=== PATIENT | male | born 2005 | race Caucasian/White ===

== ENCOUNTER 2025-05-15 16:09 | Outpatient (AMB) | payer OTHER, SELFPAY ==
--- NOTE | 2025-05-15 16:04 | MHC.OFFVIS ---
Intake Visit Reasons: 1 year follow up Allergies flu vaccine Allergy (Unknown, Uncoded 12/15/24 09:48) Unknown Medication List - Last Reconciled 05/15/25 by Shivani Licona MD amitriptyline 75 mg PO BEDTIME 90 days lcguwhjram-glssthltscxhn-okmi 50-325-40 mg 2 tabs PO Q8H PRN 30 days HPI Comments Details: Migraines were better but again increased to 2-3 / wk weather dependent. If he treats it early, he can get rid of it in 2 hrs. Working at [employer]. Using 1-2 Fioricet works 80% of the time.. Migraine with aura lasting 1-4 hrs with nausea and photo and phonophobia. 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 Had second injection of Botox for his salivary gland and makes a difference in eating. 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 Weather and light strigger it. Uses Fioricet in 1-2 hrs mostly. Triggered by weather, by fluorescent lights and computer screensand smells like bleach and starts with tension and tightening in neck. Can also be triggered by running. Excedrin helps and occasional Fioricet. Occasional vomiting and needing to go to bed. Gets dizzy with it and has some photophobia. ?Since childhood he has a lot of stress headaches, averaging 1 every 7-10 days mostly in school relieved by Tylenol. He also gets migraine with nausea photophobia and sonophobia that did not respond to Tylenol. He has no attention problems. He has no social problems. He likes to work in the yard gardening and [employer] in mowing the [employer] He has some friends in school. There are no bullying issues. Occasionally has trouble getting to sleep and takes a melatonin. His had some asthma problems for which he takes Pro-air inhaler. [facility] Medical History (Updated 05/15/25 @ 16:07 by Shivani Licona MD) GERD (gastroesophageal reflux disease) Insomnia Migraine Headache Review of Systems Const Details: Sleep:? Difficulty getting to sleep?admits.? Difficulty maintaining sleep?denies?.? Urge to move legs?denies.? Teeth grinding?denies.? Shouting or Kicking during sleep?denies.? Abnormal behavior during sleep?denies.? Excessive sleep?denies.? Snoring?denies.? Daytime sleepiness?denies.? ?? General/Constitutional:? Change in appetite?denies.? Chills?denies.? Fatigue?denies.? Fever?denies.? Weight gain?denies.? Weight loss?denies.? ?? Ophthalmologic:? Blurred vision?denies.? Diminished visual acuity?denies.? ?? ENT:? Stuffiness?denies.? Decreased hearing?denies.? Dry mouth?denies.? Ear pain?denies.? Nosebleed?denies.? Ringing in the ears?denies.? Sinus pain?denies.? Sore throat?denies.? Swollen glands?denies.? ?? Endocrine:? Cold intolerance?denies.? Excessive thirst?denies.? Frequent urination?denies.? Heat intolerance?denies.? ?? Respiratory:? Shortness of breath?denies.? Chest pain?denies.? Cough?denies.? ?? Breast:? Breast lump?denies.? Nipple discharge?denies.? ?? Cardiovascular:? Chest pain at rest?denies.? Chest pain with exertion?denies.? Claudication?denies.? Dizziness?denies.? Fluid accumulation in the legs?denies.? Irregular heartbeat?denies.? Palpitations?denies.? ?? Gastrointestinal:? Abdominal pain?denies.? Constipation?denies.? Diarrhea?denies.? Difficulty swallowing?denies.? Heartburn?denies.? Nausea?denies.? Rectal bleeding?denies.? ?? Hematology:? Easy bruising?denies.? Prolonged bleeding?denies.? ?? Genitourinary:? Frequent urination?denies.? Urgency?denies.? Incontinence?denies.? Erectile Dysfunction?denies.? ?? Musculoskeletal:? Neck pain?denies.? Back pain?denies.? Muscle aches?denies.? Painful joints?denies.? Sciatica?denies.? Weakness?denies.? ?? Podiatric:? Difficulty walking?denies.? Foot numbness?denies.? ?? Neurologic:? Difficulty swallowing?denies.? Balance difficulty?denies.? Coordination?normal.? Difficulty speaking?denies.? Dizziness?denies.? Fainting?denies.? Gait abnormality?denies.? Headache?admits.? Loss of strength?denies.? Loss of use of extremity?denies.? Low back pain?denies.? Memory loss?denies.? Seizures?denies.? Tics?denies.? Tingling/Numbness?denies.? Transient loss of vision?denies.? Tremor?denies.? ?? Psychiatric:? Anxiety?admits.? Auditory/visual hallucinations?denies.? Delusions?denies.? Depressed mood?denies.? Stressors?admits.? Substance abuse?denies.? Suicidal thoughts?denies.? ?? Physical Exam Neuro Other: Neurological: ? Abnormal neurological findings:??none.? Mental Status:?alert and oriented X 3,?Normal attention, orientation, memory and affect.? Cranial Nerves:?Pupils are equal, round and reactive to light. Fundoscopy shows normal disc bilaterally. External occular muscles are intact. Visual griffith are full, no ptosis. Face is symmetrical, no facial weakness or droop. Facial sensations are normal. Tongue protrudes in midline. Palate elevates symmetrically. Shoulder shrugging is normal..? Motor Examination:?Normal muscle tone, bulk and strength,?No atrophy or fasciculations,?No drift of the extended upper extremities,?Deep tendon reflexes are 2+?,?Plantars are flexor?.? Straight Leg Raising:?90 degrees.? Sensory Exam:?Normal light touch, temperature, pinprick, vibration and joint-position sensations?,?Rhomberg sign is absent.? Coordination:?no ataxia,?no titubation,?umdpnr-xo-nmjp, qcgk-yjol-gkrz test and rapid alternating movements were normal.? Gait Exam:?Within normal limits.? Cerebellar Signs:?Fhxnhp-kg-hltl and nasf-eh-vfef is normal,?no dysdiadochokinesia?.? Extrapyramidal System:?No tremor, rigidity with normal facial expressions,?No bradykinesia, no bradyphrenia. Normal arm swing and posture. No propulsion or retropulsion.? Speech:?Normal,?no dysphasia or dysarthria..? Mini Mental Status Exam: ? Level of Consciousness:?Alert.? Orientation:?Knows correct year, month, date, day and season,?Knows correct city, county and state. Knows correct location and floor.? Registration:?Able to register 3 objects.? Attention:?Serial 7's performed accurately.? Recall:?Able to recall 3 out of 3 objects.? Language:?Normal spontaneous speech, fluency, repetition,naming, comprehension, reading and writing.? Total Score:?30/30.? Assessment & Plan Assessment & Plan (1) Migraine: Code(s): G43.909 - Migraine, unspecified, not intractable, without status migrainosus Category: Medical Plan Refill Amitriptyline HCl Tablet, 75 MG, 1 tablet, Orally, Once a day, 30 days, 30 Tablet, Refills 5 Refill Dnrnsfbrjr-ZOND-Wxujmwwp Tablet, 50-325-40 MG, 2tabs, Orally, every 8 hrs prn, 30 days, 40, Refills 1 Notes: Taking 4-6 Fioricet a week.?? Medications: Refilled amitriptyline 75 mg PO BEDTIME 90 tabs 3RF 90 days avsacnsumq-zwvpfpbgcwsmr-fcqn 50-325-40 mg 2 tabs PO Q8H PRN 40 tabs 2RF headache 30 days Coding Level of Care Code Est Pt Level 4 (44065) Diagnoses Migraine G43.909
--- OUTSIDE RECORDS SUMMARY | 2025-05-15 20:08 | XMS_ITS | Data Portability ---
Author Organization [place] - [facility], Allergy Address [address] [place] [id number] Care Team Providers Care Firer Bisque Kiln Name Role Phone NATALIE PORRAS Primary Care Provider [phone] Assessment Encounter Date Assessment Date Assessment LastModified by Organization Details LastModified Time 01/09/2025 01/09/2025 19-year-old male presents for evaluation of tonsillitis that started 6 days with concerns for a peritonsillar abscess. Strep testing from medical transcriber office revealed non-strep-A infection, but mono was not tested. Physical exam today reveals a muffled voice, mild trismus, posterior cervical lymphadenopathy, 3+ tonsilar enlargement (right slightly greater than left) with purulent exudate, no uvular deviation, and symmetrical rise of the uvula and soft palate. Since the soft palate rises symmetrically and there is no uvular deviation, I do not suspect that there is a peritonsillar abscess. The posterior cervical lymphadenopathy does raise my suspicion of a mono infection, but since his strep test returned positive, will treat for bacterial tonsillitis. Will discontinue the Augmentin he is currently on and switch to clindamycin 4 times daily for 10 days. Additionally, due to the significant tonsillar hypertrophy and dysphagia, will start him on a 5-day course of PO prednisone. Patient will follow up in 1 week for re-evaluation. He will call the office if his symptoms worsen in the interim. Assisted in documentation by ESTRELLA Ramirez Not available 01/09/2025 15:38:06 Plan of Treatment Reminders Order Date Submit Date Provider Last Modified By Organization Details Last Modified Time Details Appointments None recorded. Lab None recorded. Referral None recorded. Procedures None recorded. Surgeries None recorded. Imaging None recorded. Medication Orders clindamycin HCl 300 mg capsule 2024 025 [facility] #[id number], [address] [place], [address], 5 05:02:07 prednisone 20 mg tablet 2024 025 [facility] #[id number], [address] [place], [address], 5 05:01:47 Patient TargetsNo targets recorded. Patient InstructionsNo instructions recorded. Reason for Referral None Reported. 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 Medical Equipment None Reported. Allergies Allergen ID Allergen Name Allergen Category Reaction Reaction Severity Criticality Documentation Date Start Date Code Code System Note Provider Name and Address Organization Details Recorded Time 379978 Vaccine product containin g only influenza virus antigen (medicina l product) medicatio n other Not available Not available 10/12/2023 90011 84112 105 SNOMED React ion: unkno wn, unspe cifie d;; Not Available [facility] 4 01:11:08 Medications Name Sig Start Date Stop Date Status Note LastModified by Organization Details LastModified Time prednison e 10 mg tablet PLEASE SEE ATTACHED FOR DETAILED DIRECTIO NS active Not Available Not Available No t Available clindamyc in HCl 300 mg capsule Take 1 capsule every 6 hours by oral route for 10 days. 01/26 completed Not Available Not Available Not Available amitripty line 75 mg tablet TAKE 1 TABLET BY MOUTH EVERYDAY AT BEDTIME active Not Available Not Available No t Available prednison e 20 mg tablet Take 2 tablets every day by oral route for 5 days. 01/21 completed Not Available Not Available Not Available penicilli n V potassium 500 mg tablet TAKE 1 TABLET BY MOUTH TWICE A DAY FOR 10 DAYS active Not Available Not Available No t Available triamcino lone acetonide 0.1 % topical cream TAKE 1 APPLICAT ION (TOPICAL ) 2 TIMES PER DAY (ITCHING ) FOR 14 DAYS DO NOT USE ON GROIN OR FACE. active Not Available Not Available No t Available butalbita l-acetami nophen-ca ffeine 50 mg-325 mg-40 mg tablet TAKE 2 TABLETS BY MOUTH EVERY 8 HOURS NEEDED FOR 30 DAYS active Not Available Not Available No t Available amitripty line 25 mg tablet active Medicati on ID: [id number] Nathalie muñiz Name: amitript yline Se nd Method: E-Prescr ibed Sub s Allowed: subs OK Speci al Instruct ion: TAKE 1 TABLET BY MOUTH AT BEDTIME FOR 2 WEEKS THEN TAKE 2 TABS AT BEDTIME THEREAFT ER DIRECTED Medicat ionGener icName: amitript yline Not Available Not Available Not Available nortripty line 10 mg capsule Take 1 capsule by mouth once a day as directed 08/31 completed Medicati on ID: [id number] Romelia daly By Name: Bernardo M. Schreibs tein, M.D. Bra nd Name: nortript yline Se nd Method: E-Prescr ibed Sub s Allowed: subs OK Specpetey al Instruct ion: At bedtime Medicati onGeneri cName: nortript yline Not Available Not Available Not Available hydroxyzi ne HCl 25 mg tablet TAKE 1 TABLET 3 TO 4 TIMES PER DAY ITCHING FOR 5 DAYS MAY CAUSE DROWSINE SS. active Not Available Not Available No t Available ondansetr on 4 mg disintegr ating tablet TAKE 1 TABLET BY MOUTH EVERY 8 HOURS NEEDED FOR NAUSEA active Not Available Not Available No t Available doxycycli ne hyclate 100 mg tablet TAKE 1 TABLET BY MOUTH TWICE A DAY FOR 7 DAYS active Not Available Not Available No t Available amoxicill in 875 mg-potass ium clavulana te 125 mg tablet TAKE 1 TABLET BY MOUTH TWICE A DAY FOR 10 DAYS active Not Available Not Available No t Available Ventolin HFA 90 mcg/actua tion aerosol inhaler INHALE 2 -4 PUFFS BY MOUTH EVERY 4 HOURS NEEDED FOR COUGH, WHEEZE, SHORTNES S OF BREATH active Not Available Not Available No t Available Mapap Arthritis Pain 650 mg tablet,ex tended release 2019 active Medicati on ID: [id number] D uration Value: 4 Brand Name: Mapap Arthriti s Pain Sen d Method: E-Prescr ibed Sub s Allowed: subs OK Speci al Instruct ion: TAKE 2 TABLETS EVERY 8 HOURS,X8 DAYS, NEEDED FOR PAIN,INS TR NOT TO EXCEED 6 TABLETS/ DAY Medi cationGe nericNam e: Mapap Arthriti s Pain Med ication ID: [id number] D uration Value: 4 Brand Name: Mapap Arthriti s Pain Sen d Method: E-Prescr ibed Sub s Allowed: subs OK Speci al Instruct ion: TAKE 2 TABLETS EVERY 8 HOURS,X8 DAYS, NEEDED FOR PAIN,INS TR NOT TO EXCEED 6 TABLETS/ DAY Medi cationGe nericNam e: Mapap Arthriti s Pain Not Available Not Available Not Available escitalop valentino 20 mg tablet TAKE 1 TABLET BY MOUTH EVERY DAY active Not Available Not Available No t Available chlorhexi dine gluconate 0.12 % mouthwash CAP FULL AFTER MEALS 2 TIMES A DAY DONT EAT, SWALLOW DONT RINSE WITH WATER IMMEDIAT SALLY AFTER USE active Not Available Not Available No t Available Mapap Arthritis Pain 08/31 completed Medicati on ID: [id number] D uration Value: 4 Brand Name: Alie thibodeaux Pain Sen d Method: E-Prescr ibed Sub s Allowed: subs OK Speci al Instruct ion: TAKE 2 TABLETS EVERY 8 HOURS,X8 DAYS, NEEDED FOR PAIN,INS TR NOT TO EXCEED 6 TABLETS/ DAY Medi cationGe nericNam e: Mapap Arthriti s Pain Not Available Not Available Not Available Vitals Date Recorded Body weight Body mass index (BMI) Body height Provider Name and Address Organization Details Last Updated DateTime 01/09/2025 54348.51 g 25 kg/m2 187.96 cm Sobeida Dwyer [place] - [facility] 01/09/2025 14:46:35 Social History None recorded. Functional Status None recorded. Mental Status None recorded. Family History Nothing Reported. Medical History No medical history recorded. Past Encounters Encounter ID Performer Location Encounter Start Date Encounter Closed Date Diagnosis/Indication Diagnosis SNOMED-CT Code Diagnosis ICD10 Code Diagnosis IMO Codes Diagnosis Note [id number] RODRIGUEZ KENNY PA-C [facility] [address] [address] 01/09/2025 14:22:24 01/09/2025 15:02:10 Tonsillitis 09240793 J03.90 [id number] Health Concerns Section Related Observation LastModified by Organization Detai ls LastModified Time None Recorded Concern Status LastModified by Organization Details LastModified Time None Recorded Advance Directives Directive None Recorded Payers Insurance Date Sequence Insurance Name Policy Number Policy Harrell Covered Member ID Harrell Member ID Guarantor Name 01/09/2025 1 [place] [facility] Paolo Don [id number] Elena Don 01/16/2025 1 [employer] [place] [id number] Paolo Don [id number] Elena Don Notes Date Note Type Note Provider Name and Address Organization Details Recorded Time 01/09/2025 text/html ROS as noted in the HPI 19-year-old male presents for evaluation of a sore throat. Patient states he developed a sore throat 6 days ago that worsened in severity, along with swelling of his tonsils, difficulty opening his mouth entirely, muffled voice, and pain with swallowing. He saw his medical transcriber 4 days ago, who tested for strep and started him on PO penicillin. Patient states the strep test came back as non-group-A strep over the weekend, therefore he was switched to Augmentin 2 days ago. Patient has noticed some improvement in his throat pain since starting the antibiotics, but he continues to have worsening swelling of his tonsils and difficulty eating. 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 He has a history of mono infection in 2021. He denies fevers and difficulty moving his neck. RODRIGUEZ KENNY PA-C [address] [place] [address], [place], [phone], [facility] - [facility] 01/09/2025 15:39:36
--- OUTSIDE RECORDS SUMMARY | 2025-05-15 20:08 | XMS_ITS ---
Author Name [facility] Organization Unknown History of Medication Use Medication Directions Dispensed Refills Start Date End Date Stat Ventolin HFA 90 mcg/actuation aerosol inhaler INHALE 2 -4 PUFFS BY MOUTH EVERY 4 HOURS NEEDED FOR COUGH, WHEEZE, SHORTNESS OF BREATH 06/07/2024 active escitalopram 20 mg tablet TAKE 1 TABLET BY MOUTH EVERY DAY 06/06/2024 active omeprazole 20 mg capsule,delayed release TAKE ONE CAPSULE EVERY DAY 12/20/2017 8 completed amoxicillin 400 mg/5 mL oral suspension Take 2.5 tsp every day by oral route for 10 days. 05/24/2010 1 completed Orapred 15 mg/5 mL (3 mg/mL) oral solution take 2 tsp PO Day 1-3, 1 tsp PO Day 4-6, 1/2 tsp PO Day 7-8 01/06/2010 active Flovent HFA 110 mcg/actuation aerosol inhaler INHALE 2 PUFFS BY MOUTH EVERY DAY RINSE MOUTH AFTER USE 08/20/2009 active Westcort 0.2 % topical cream Apply to affected area(s) by topical route 2 times per day 04/29/2009 active butalbital-acetaminop hen-caffeine 50 mg-325 mg-40 mg tablet TAKE 2 TABLETS BY MOUTH EVERY 8 HOURS NEEDED FOR 30 DAYS 5 completed chlorhexidine gluconate 0.12 % mouthwash CAP FULL AFTER MEALS 2 TIMES A DAY DONT EAT, SWALLOW DONT RINSE WITH WATER IMMEDIATELY AFTER USE 5 completed doxycycline hyclate 100 mg tablet TAKE 1 TABLET BY MOUTH TWICE A DAY FOR 7 DAYS 5 completed prednisone 10 mg tablet PLEASE SEE ATTACHED FOR DETAILED DIRECTIONS 5 completed amoxicillin 500 mg capsule TAKE 2 CAPSULES BY MOUTH EVERY DAY FOR 10 DAYS 3 completed diazepam 5 mg tablet TAKE 1 TABLET BY MOUTH 1 HOUR BEFORE APPT 3 completed lorazepam 1 mg tablet TAKE 1 TABLET BY MOUTH 90 MINUTES BEFORE APPT 3 completed cephalexin 250 mg capsule TAKE 1 CAPSULE BY MOUTH 4 TIMES A DAY UNTIL FINISHED 3 completed cetirizine 10 mg tablet TAKE 1 TABLET BY MOUTH EVERY DAY 3 completed doxycycline hyclate 100 mg capsule TAKE 1 CAPSULE BY MOUTH TWICE A DAY FOR 1 DAY 3 completed triamcinolone acetonide 0.1 % topical cream APPLY TO PRURITIC LESIONS TWICE DAILY NEEDED FLARES, DECREASE SYMPTOMS IMPROVE 3 completed sodium fluoride 1.1 % dental paste BRUSH TWICE A DAY WITH PEA SIZED AMOUNT THEN FLOSS. SPIT OUT EXCESS AND DO NOT RINSE 2 completed cephalexin 500 mg capsule TAKE 2 CAPSULES TWICE A DAY BY ORAL ROUTE FOR 10 DAYS. 2 completed fluocinonide 0.05 % topical cream APPLY TO AFFECTED AREA TWICE A DAY 2 completed mupirocin 2 % topical ointment APPLY A SMALL AMOUNT TO THE AFFECTED AREA BY TOPICAL ROUTE 3 TIMES PER DAY X 7 DAYS 2 completed docusate sodium 100 mg capsule TAKE 1 CAPSULE BY MOUTH 2 TIMES A DAY NEEDED FOR CONSTIPATION 2 completed doxazosin 2 mg tablet 1 TABLET BY MOUTH DAILY AT BEDTIME,X14 DAYS,START TAKING ON 07/16/21. DOSE TO BE TITRATED UP BY . 2 completed oxycodone 5 mg tablet TAKE 1 TABLET BY MOUTH EVERY 6 HOURS FOR 3 DAYS NEEDED SEVERE PAIN 2 completed escitalopram 10 mg tablet TAKE 1 TABLET EVERY DAY BY ORAL ROUTE FOR 30 DAYS. 1 completed propranolol ER 120 mg capsule,24 hr,extended release TAKE 1 CAPSULE BY MOUTH TWICE A DAY 1 completed Banophen 25 mg capsule TAKE 1 CAPSULE BY MOUTH 3 TIMES A DAY NEEDED FOR ITCHING 0 completed hydrocortisone 1 % topical cream APPLY TO AFFECTED AREA TWICE A DAY 0 completed Mapap Arthritis Pain 650 mg tablet,extended release TAKE 2 TABLETS EVERY 8 HOURS,X8 DAYS, NEEDED FOR PAIN,INSTR NOT TO EXCEED 6 TABLETS/DAY 0 completed methocarbamol 750 mg tablet 2 TABLET BY MOUTH 3 TIMES A DAY,X7 DAYS,INSTR MAX 8 GM/DAY. DECREASE AFTER 72 HOURS TO 4 GM/DAY 0 completed nortriptyline 10 mg capsule TAKE 1 CAPSULE BY MOUTH ONCE A DAY DIRECTED AT BEDTIME 0 completed topiramate 100 mg tablet TAKE 1 TABLET AT BEDTIME FOR 2 WEEKS THEN INCREASE TO 1 TABLET TWICE A DAY DIRECTED 9 completed acetaminophen 325 mg tablet TAKE 2 TABLETS BY MOUTH EVERY 6 HOURS NEEDED FOR MODERATE PAIN 8 completed amlodipine 5 mg tablet TAKE 1 TABLET BY MOUTH DAILY EVERY MORNING 8 completed ibuprofen 800 mg tablet TAKE 1 TABLET BY MOUTH EVERY 8 HOURS NEEDED FOR MODERATE PAIN 8 completed meloxicam 15 mg tablet TAKE 1 TABLET BY MOUTH EVERY DAY 8 completed phenoxybenzamine 10 mg capsule 1 CAPSULE BY MOUTH 3 TIMES A DAY 8 completed propranolol 10 mg tablet TAKE 3 TABLETS BY MOUTH EVERY 8 HOURS DIRECTED 8 completed Senna Plus 8.6 mg-50 mg tablet TAKE 1 TABLET BY MOUTH EVERY DAY 8 completed sumatriptan 50 mg tablet TAKE 1 TABLET BY MOUTH EVERY 4 HOURS UP TO 3 TABS DAILY 8 completed topiramate 50 mg tablet TAKE 1 TABLET BY MOUTH TWICE A DAY 8 completed tramadol 50 mg tablet TAKE 1 TABLET BY MOUTH EVERY 6 HOURS NEEDED 8 completed multivitamin 01 8 completed topiramate 25 mg tablet TAKE 1 TABLET BY MOUTH TWICE A DAY 8 completed erythromycin with ethanol 2 % topical gel 7 completed propranolol ER 60 mg capsule,24 hr,extended release 01/03/20 1 6 completed acetaminophen 300 mg-codeine 30 mg tablet TAKE 1 TABLET BY MOUTH EVERY 4 TO 6 HOURS NEEDED active Acne Medication 10 % topical gel APPLY TO FACE TWICE A DAY MIXED WITH CLINDAMYCIN active amitriptyline 25 mg tablet TAKE 1 TABLET BY MOUTH AT BEDTIME FOR 2 WEEKS THEN TAKE 2 TABS AT BEDTIME THEREAFTER DIRECTED active amitriptyline 75 mg tablet TAKE 1 TABLET BY MOUTH EVERY DAY FOR 30 DAYS active BP Wash 10 % topical cleanser APPLY TO FACE AND BACK EVERY MORNING, RINSE OFF active clindamycin 1 % topical gel APPLY TO FACE TWICE A DAY MIXED WITH BPO GEL active clindamycin 1 % topical gel APPLY TO FACE TWICE A DAY MIXED WITH BPO GEL active cyanocobalamin (vit B-12) 1,000 mcg/mL injection solution INJECT ONCE A MONTH active Flovent Diskus 250 mcg/actuation powder for inhalation active fluticasone propionate 50 mcg/actuation nasal spray,suspension active hydroxyzine HCl 25 mg tablet TAKE 1 TABLET 3 TO 4 TIMES PER DAY ITCHING FOR 5 DAYS MAY CAUSE DROWSINESS. active hydroxyzine HCl 50 mg tablet TAKE 1 TABLET BY MOUTH EVERY 8 HOURS NEEDED ANXIETY active ibuprofen 400 mg tablet TAKE 1 TABLET BY MOUTH EVERY 6 HOURS NEEDED active ketoconazole 2 % shampoo APPLY TO SCALP 2X/WEEK, LEAVE ON FOR 5 MINS AND RINSE OFF active lorazepam 2 mg tablet TAKE 1 TABLET PRIOR TO PROCEDURE NEEDED FOR ANXIETY active [id number] drocort 3.5 mg-10,000 unit/mL-1 % ear drops,susp Instill 4 drops into affected ear(s) by otic route 3 times per day active None recorded. (No additional sig information) completed amitriptyline 25 mg tablet 1 TABLET AT BEDTIME X 2 WKS THEN 2 TABLETS AT BEDTIME ORALLY ONCE A DAY X30 DAY(S) 1 TABLET AT BEDTIME X 2 WKS THEN 2 TABLETS AT BEDTIME ORALLY ONCE A DAY X30 DAY(S) completed butalbital-acetaminop hen-caffeine 50 mg-325 mg-40 mg tablet TAKE 1 TO 2 TABLETS EVERY 4 HOURS NEEDED X30 DAYS TAKE 1 TO 2 TABLETS EVERY 4 HOURS NEEDED X30 DAYS completed cyanocobalamin (vit B-12) 1,000 mcg/mL injection solution INJECT ONCE A MONTH FOR 4 MONTHS INJECT ONCE A MONTH FOR 4 MONTHS completed escitalopram 20 mg tablet TAKE 1 TABLET BY MOUTH EVERY DAY TAKE 1 TABLET BY MOUTH EVERY DAY completed lorazepam 1 mg tablet 1 TAB 30 MIN BEFORE PROCEDURE. OK TO REPEAT ONCE IF STILL ANXIOUS 1 TAB 30 MIN BEFORE PROCEDURE. OK TO REPEAT ONCE IF STILL ANXIOUS completed lorazepam 2 mg tablet TAKE 1 TABLET PRIOR TO EACH MRI NEEDED FOR ANXIETY TAKE 1 TABLET PRIOR TO EACH MRI NEEDED FOR ANXIETY completed triamcinolone acetonide 0.1 % topical cream APPLY TO PRURITIC LESIONS TWICE DAILY NEEDED FLARES, DECREASE SYMPTOMS IMPROVE APPLY TO PRURITIC LESIONS TWICE DAILY NEEDED FLARES, DECREASE SYMPTOMS IMPROVE completed Allergies Allergen Reaction Severity Comment Documented Date Source Statu s INFLUENZA VIRUS VACCINES OTHER [facility] VACCINE PRODUCT CONTAINING ONLY INFLUENZA VIRUS ANTIGEN (MEDICINAL PRODUCT) OTHER mild [facility] activ e Problems Problem Status Onset Date Problem Type Date of Resoluti on Source Migraine active 2018-01-19 ProblemAct [facility] Gastroesophageal reflux disease active ProblemAct [facility] Hypertensive disorder active 2018-03-28 ProblemAct [facility] Eczema active 2007-11-25 ProblemAct [facility] 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 ProblemAct [facility] 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 ProblemAct [facility] Anxiety active 2020-12-17 ProblemAct [facility] Asthma active 2008-03-19 ProblemAct [facility] Immunizations Vaccine Date Source Lot Number Status meningococcal B, OMV 07/14/2021 [facility] [id number] comp leted meningococcal MCV4P 02/15/2020 [facility] [id number] compl eted meningococcal MCV4P 01/28/2015 [facility] [id number] compl eted Tdap 01/28/2015 [facility] [id number] completed Influenza, split virus, triv alent, preservative 03/26/2011 [facility] [id number] completed Influenza, split virus, triv alent, preservative 04/29/2010 [facility] [id number] completed influenza, unspecified formulation 02/21/2009 [facility] completed IPV 12/18/2008 [facility] completed varicella 12/18/2008 [facility] completed DTaP, unspecified formulation 11/01/2008 [facility] completed influenza, unspecified formulation 05/03/2008 [facility] completed MMR 09/15/2007 [facility] completed DTaP, unspecified formulation 05/05/2005 [facility] completed IPV 05/05/2005 [facility] completed Hib, unspecified formulation 12/26/2004 [facility] completed MMR 12/26/2004 [facility] completed pneumococcal conjugate PCV 7 09/17/2004 [facility] completed varicella 09/17/2004 [facility] completed Hep B, unspecified formulation 06/17/2004 [facility] completed DTaP, unspecified formulation 03/17/2004 [facility] completed Hib, unspecified formulation 03/17/2004 [facility] completed pneumococcal conjugate PCV 7 03/17/2004 [facility] completed DTaP, unspecified formulation 01/16/2004 [facility] completed Hib, unspecified formulation 01/16/2004 [facility] completed IPV 01/16/2004 [facility] completed pneumococcal conjugate PCV 7 01/16/2004 [facility] completed DTaP, unspecified formulation 2003 [facility] completed Hib, unspecified formulation 2003 [facility] completed IPV 2003 [facility] completed pneumococcal conjugate PCV 7 2003 [facility] completed Hep B, unspecified formulation 2003 [facility] completed Hep B, unspecified formulation 2003 [facility] completed Encounters Encounter Type Encounter Reason Primary Diagnosis Location Date Ambulatory Peritonsillar abscess Peritonsillar absce ss [facility] 04/05/2025 Ambulatory Peritonsillar abscess Peritonsillar absce ss [facility] 01/09/2025 Ambulatory Acute pharyngitis, unspecified Acute pharyngitis, unspecified [facility] 01/08/2025 Ambulatory Encntr for general adult medical exam w/o abnormal findings Encntr for general adult medical exam w/o abnormal findings [facility] 01/05/2025 Ambulatory Anxiety disorder, unspecified Anxiety disorder, unspecified [facility] 06/07/2024 Ambulatory Acute pharyngitis, unspecified Acute pharyngitis, unspecified [facility] 09/21/2023 Ambulatory Acute pharyngitis, unspecified [facility] 05/14/2023 Ambulatory Anxiety disorder, unspecified [facility] 05/12/2023 Ambulatory Streptococcal pharyngitis [facility] 01/13/2023 Ambulatory [facility] 12/15/2022 Ambulatory [facility] 10/21/2022 Ambulatory [facility] 01/28/2022 Ambulatory [facility] 12/24/2021 Ambulatory [facility] 10/06/2021 Ambulatory [facility] 10/01/2021 Ambulatory [facility] 08/11/2021 Ambulatory [facility] 07/16/2021 Ambulatory [facility] 07/14/2021 Ambulatory [facility] 03/25/2021 Ambulatory [facility] 02/19/2021 Care Team Organization Name Specialty Phone Email Start Date End Toño chiang [facility] 2021 [facility] 202001/28/2022
== END 2025-05-15 16:18 | disposition home or self-care (01) ==
LOC: HO.HSM 16:09
PROVIDERS: PCP Pediatrics; Visit Provider Psychiatry & Neurology Neurology
DX: G43.909 Migraine, unspecified, not intractable, without status migrainosus (principal)
CPT/HCPCS: 99214